=== PATIENT | female | born 1970 | race Caucasian/White ===

== ENCOUNTER 2024-03-19 13:07 | Outpatient (CLI) | payer OTHER | END 2024-03-19 13:08 | disposition home or self-care (01) | LOC: CSHWCC 13:07 | PROVIDERS: ATTEND Nurse Practitioner Family | DX: L89.622 Pressure ulcer of left heel, stage 2 (principal); I89.0 Lymphedema, not elsewhere classified; G80.9 Cerebral palsy, unspecified | CPT/HCPCS: 97597; G0463; 99213 ==